=== PATIENT | female | born 1990 | race Caucasian/White ===

== ENCOUNTER 2016-10-24 22:03 | Emergency (ER) | payer OTHER ==
[2016-10-24] MEDS ORDERED: predniSONE 20 MG TABLET PO STA (22:17)
[2016-10-24] MEDS ORDERED: predniSONE 20 MG TABLET ONE (22:20)
== END 2016-10-24 22:25 | disposition home or self-care (01) ==
DX: L30.9 Dermatitis, unspecified (principal)
CPT/HCPCS: 99283; J7512

== ENCOUNTER 2016-12-01 08:58 | Outpatient (CLI) | payer OTHER | END 2016-12-01 08:59 | disposition home or self-care (01) | DX: R01.1 Cardiac murmur, unspecified (principal) ==

== ENCOUNTER 2017-05-10 19:43 | Emergency (ER) | payer OTHER ==
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
[2017-05-10] MEDS ORDERED: DOXYCYCLINE 100 MG TABLET PO STA (21:39)
[2017-05-10] MEDS ORDERED: MUPIROCIN 2% OINT 1 GM TOP STA (21:39)
[2017-05-10] MEDS ORDERED: DEXAMETHASONE 10 MG/ML VIAL PO STA (21:39)
[2017-05-10] MEDS ORDERED: DOXYCYCLINE 100 MG TABLET PO ONE (21:49)
[2017-05-10] MEDS ORDERED: DEXAMETHASONE 10 MG/ML VIAL ONE (21:50)
[2017-05-10] MEDS ORDERED: BACITRACIN OINT TOP ONE (21:50)
[2017-05-10] MEDS ORDERED: CHERRY SYRUP 10 ML UDC PO ONE (21:50)
[2017-05-10] MEDS ORDERED: MUPIROCIN 2% OINT 1 GM ONE (21:54)
[2017-05-10 22:20] VITALS: BP 106/62
== END 2017-05-10 22:18 | disposition home or self-care (01) ==
LOC: ED 19:43
DX: T63.441A Toxic effect of venom of bees, accidental (unintentional), initial encounter (principal); Y92.39 Other specified sports and athletic area as the place of occurrence of the external cause
CPT/HCPCS: 99283; A9270

== ENCOUNTER 2017-09-13 11:44 | Outpatient (CLI) | payer OTHER ==
--- NOTE | 2017-09-13 14:52 | MRI Report ---
EXAM: MRI BRAIN WITHOUT CONTRAST EXAM DATE: 09/13/2017 01:00 PM. CLINICAL HISTORY: 27-year-old with occipital neuralgia COMPARISON: None. TECHNIQUE: Multiplanar, multisequence T1-weighted and fluid-sensitive MR sequences of the brain were performed. Sequences optimized for routine evaluation. Other: None. IV Contrast: None. FINDINGS: Brain Volume: Normal for age. Parenchyma/Dura: No mass, acute infarct or hemorrhage. There are a few scattered foci of T2/FLAIR sig nal hyperintensity seen predominantly in a peripheral distribution. Ventricles/Cisterns: No hydrocephalus. No abnormal extra-axial fluid collection or hemorrhage. Orbits: Symmetric and unremarkable. Sella Turcica: The pituitary gland, cavernous sinuses, suprasellar cistern and optic chiasm are unrem arkable. IAC: Symmetric and unremarkable. Vasculature: Normal signal flow void is seen in the major arterial structures at the skull base. Sinuses: Hypoplastic right maxillary sinus. Otherwise the spinous sinuses, mastoid air cells, middle ear cavities appear clear. Bones: No focal pathologic appearing marrow signal changes. Other: None. IMPRESSION: 1. No acute infarct, intracranial hemorrhage, mass, hydrocephalus, or midline shift. 2. There are a few scattered foci of white matter abnormality seen predominantly in a peripheral dist ribution. Although findings are nonspecific they may represent sequela of prior migraines. [facility] Referring Provider Line: [phone] SITE ID: [id number]
--- NOTE | 2017-09-13 19:43 | MRI Report ---
EXAM: MRI CERVICAL SPINE WITHOUT CONTRAST EXAM DATE: 09/13/2017 12:55 PM. CLINICAL HISTORY: OCCIPITAL NEURALGIA. COMPARISONS: MR brain 09/13/2017 TECHNIQUE: Multiplanar, multisequence T1-weighted and fluid-sensitive sequences of the cervical spine without contrast. Other: None. FINDINGS: Neurologic Structures: The visualized posterior fossa structures are unremarkable. No signal abnormal ity in the visualized spinal cord. Alignment: No scoliosis or spondylolisthesis. Bone Marrow: No gross fractures or bone lesions. No marrow edema. Interspace Levels/Facets: C1-C2: Unremarkable. C2-C3: Unremarkable. C3-C4: Unremarkable. C4-C5: Unremarkable. C5-C6: Unremarkable. C6-C7: Unremarkable. C7-T1: Unremarkable. Musculature: Normal. No edema or fatty atrophy. Other: The paravertebral and prevertebral soft tissues are normal. IMPRESSION: Unremarkable cervical spine MRI. No evidence of acute fracture or malalignment. No bone m arrow edema. No cord signal abnormality at any level. No significant central canal or neuroforaminal narrowing. [facility] Referring Provider Line: [phone] SITE ID: [id number]
== END 2017-09-13 11:45 | disposition home or self-care (01) ==
LOC: DI 11:44
DX: M54.81 Occipital neuralgia (principal)
CPT/HCPCS: 70551; 72141